=== PATIENT | female | born 1955 | race African-American/Black ===

== ENCOUNTER 2016-11-20 17:12 | Emergency (ER) | payer OTHER | END 2016-11-20 19:05 | disposition home or self-care (01) | LOC: FER 17:12 | DX: S46.912A Strain of unspecified muscle, fascia and tendon at shoulder and upper arm level, left arm, initial encounter (principal); I10 Essential (primary) hypertension; E78.5 Hyperlipidemia, unspecified; F17.210 Nicotine dependence, cigarettes, uncomplicated; Z79.82 Long term (current) use of aspirin; Z79.899 Other long term (current) drug therapy | CPT/HCPCS: J1885 ==

== ENCOUNTER 2017-02-26 07:01 | Emergency (ER) | payer OTHER | END 2017-02-26 08:09 | disposition home or self-care (01) | LOC: FER 07:01 | DX: M75.21 Bicipital tendinitis, right shoulder (principal); G56.01 Carpal tunnel syndrome, right upper limb; I10 Essential (primary) hypertension; Z79.899 Other long term (current) drug therapy ==

== ENCOUNTER 2020-10-13 11:55 | Emergency (ER) | payer MEDICARE, OTHER ==
[2020-10-13] MEDS ORDERED: NAPROXEN500 MG PO (13:13)
== END 2020-10-13 13:30 | disposition home or self-care (01) ==
LOC: FER 11:55
DX: S63.637A Sprain of interphalangeal joint of left little finger, initial encounter (principal); M20.012 Mallet finger of left finger(s); I10 Essential (primary) hypertension; X58.XXXA Exposure to other specified factors, initial encounter; Y93.E9 Activity, other interior property and clothing maintenance; Y92.002 Bathroom of unspecified non-institutional (private) residence as the place of occurrence of the external cause
CPT/HCPCS: 73130

== ENCOUNTER 2021-06-11 15:06 | Emergency (ER) | payer OTHER, MEDICARE ==
[~2021-06-11 15:06] MED LIST: NAPROXEN500 MG PO
== END 2021-06-11 17:24 | disposition home or self-care (01) ==
LOC: FER 15:06
DX: S13.4XXA Sprain of ligaments of cervical spine, initial encounter (principal); I10 Essential (primary) hypertension; V49.40XA Driver injured in collision with unspecified motor vehicles in traffic accident, initial encounter; Y92.410 Unspecified street and highway as the place of occurrence of the external cause
CPT/HCPCS: 72125

== ENCOUNTER → 2021-11-13 | Day surgery (SDC) | payer MEDICARE, OTHER ==
[~2021-11-13] VITALS: Ht 162.6 cm; Wt 73.6 kg
[~2021-11-13] MED LIST changes: +ABILIFY10 MG PO; +ATARAX25 MG PO; +BACLOFEN 10MG T10 MG PO; +COZAAR100 MG PO; +DICLOFENAC SODI75 MG PO; +GABAPENTIN800 MG PO; +HCTZ25 MG PO; +HYDROCODON-ACE1 EAC1 PO; +LEXAPRO 10MG TA10 MG PO; +PRILOSEC20 MG PO; +REQUIP0.25 MG PO; +VENTOLIN (2.5 MG/3 M INH; +VITAMIN D310 MC1 PO; +ZINC50 M1 PO
== END | disposition home or self-care (01) ==
LOC: FAS 11:01
DX: K62.5 Hemorrhage of anus and rectum (principal); D12.5 Benign neoplasm of sigmoid colon; D12.3 Benign neoplasm of transverse colon; K63.4 Enteroptosis; K57.30 Diverticulosis of large intestine without perforation or abscess without bleeding; K58.9 Irritable bowel syndrome, unspecified; K64.8 Other hemorrhoids; K21.9 Gastro-esophageal reflux disease without esophagitis; I10 Essential (primary) hypertension; F17.200 Nicotine dependence, unspecified, uncomplicated; Z72.89 Other problems related to lifestyle
CPT/HCPCS: J1610; J2250; J2704; J7120